=== PATIENT | male | born 1985 | race Caucasian/White ===

== ENCOUNTER → 2016-06-12 | Outpatient (REF) | payer BC | LOC: M LAB REF 12:52 | PROVIDERS: ATTEND Internal Medicine Nephrology | DX: R80.9 Proteinuria, unspecified (principal) ==

== ENCOUNTER → 2017-05-22 | Outpatient (REF) | payer BC | LOC: M LAB REF 13:19 | DX: R80.9 Proteinuria, unspecified (principal) | CPT/HCPCS: 84156 ==

== ENCOUNTER → 2019-05-26 | Outpatient (REF) | payer BC | LOC: M LAB REF 13:09 | PROVIDERS: ATTEND Internal Medicine Nephrology | DX: R80.9 Proteinuria, unspecified (principal) ==

== ENCOUNTER → 2019-06-09 | Outpatient (CLI) | payer BC ==
--- NOTE | 2019-06-09 11:55 | REP ---
RENAL ULTRASOUND: Real-time sonographic evaluation of kidneys performed. The kidneys are normal in size and echotexture, right kidney measuring 11.0 x 5.9 x 4.6 cm and left kidney 10.9 x 5.1 x 6.0 cm. There is no hydronephrosis bilaterally. There is a cyst in the upper pole of the left kidney 1 cm in diameter. Ureteral jets are not seen in the urinary bladder with Doppler color evaluation. IMPRESSION: No hydronephrosis. Cyst upper pole of the left kidney 1 cm in diameter. Electronically Signed by Isaiah Yu MD 06/09/2019 03:12 P
== END ==
LOC: M RAD 10:37
PROVIDERS: ATTEND Internal Medicine Nephrology
DX: N17.9 Acute kidney failure, unspecified (principal); N28.1 Cyst of kidney, acquired